=== PATIENT | female | born 1935 | race Caucasian/White ===

== ENCOUNTER → 2018-05-10 | Outpatient (CLI) | payer MEDICARE, OTHER ==
[2018-05-10] VITALS (7 sets, daily range): BP systolic 145–166; BP diastolic 48–88
[~2018-05-10] VITALS: Ht 165.1 cm; Wt 65.8 kg
[~2018-05-10] MED LIST: ALLOPURINOL 10100 M1 PO; CLONAZEPAM 0.50.5 M1 PO; FENOFIBRATE134 MG PO; IMDUR 30 MG TAB30 M1 PO; KLOR-CON 1010 MEQ PO; LASIX 40 MG TAB40 M2 PO; LISINOPRIL20 MG PO; LOPRESSOR50 PO; PAXIL10 MG PO; ZOCOR20 MG PO
[2018-05-10 10:07] LABS: HEMATOCRIT 36.3 % (37.0-47.0); HEMOGLOBIN 12.4 gm/dL (12.0-15.0); MCH 30.3 pg (26.0-34.0); MCHC 34.2 g/dL (28.0-37.0); MCV 88.7 fL (80.0-100.0); MPV 8.3 fl. (7.2-11.1); RBC 4.09 mil/uL (4.20-5.00); RDW-CV 14.2 % (10.5-14.5); WBC 8.3 thou/uL (4.0-11.0)
[2018-05-10 10:15] LABS: ANION GAP 10 mmol/L (7-16); BUN 32 mg/dL (7-18); CHLORIDE 103 mmol/L (98-107); CO2 26 mmol/L (21-32); CREATININE 1.3 mg/dL (0.6-1.3); GLUCOSE 184 mg/dL (70-99); POTASSIUM 3.6 mmol/L (3.5-5.1); SODIUM 139 mmol/L (136-145)
[2018-05-10 10:16] LABS: APTT 29.6 Seconds (25.0-31.3); PROTIME 10.6 Seconds (9.20-11.50)
[2018-05-10 10:19] LABS: ALBUMIN 3.9 g/dL (3.4-5.0); ALKALINE PHOSPHATASE 47 U/L (46-116); CHOLESTEROL 198 mg/dL (<200); HDL CHOLESTEROL 39 mg/dL (>40); LDL CHOLESTEROL 119 mg/dL (<100); SGOT 21 U/L (15-37); SGPT 26 U/L (30-65); TC:HDL 5.1 Ratio (Not establshd); TOTAL BILIRUBIN 0.3 mg/dL (<0.1-1.0); TOTAL PROTEIN 7.7 g/dL (6.4-8.2); TRIGLYCERIDE 200 mg/dL (<150); VLDL 40 mg/dL (<40)
[2018-05-10 10:20] LABS: SERUM ASSESSMENT Clear
--- NOTE | 2018-05-10 14:31 | CARD ---
[address] [address] CARDIAC CATH REPORT Name: HOMERO BALL Room: [facility]#: [id number] Admission: 05/10/18 Attend Phys: John Bermudez MD Discharge: Date of : 37 Report #: [id number] THIS REPORT FOR: //name// APPROVED REPORT Study performed: 05/10/2018 11:00:37 Patient Details The patient is a 83 year-old female Event Personnel John Bermudez Interior Surface Insulation Worker, Veronica Ospina RN RN, Herrera Castro, Mone Garland RTR Scrub Procedure Narrative A Slender Glidesheath sheath was inserted into the . Coronary angiography was performed using coronary diagnostic catheters. The right coronary system was accessed and visualized with a Ellis 4.0 6fr catheter. The left coronary system was accessed and visualized with a Ellis 4.0 6fr catheter. The left ventricle was accessed and visualized with a PC: Pig 6fr catheter. The patient tolerated the procedure well and there were no complications associated with the procedure. Intraoperative Conscious Sedation Sedation start time: 1155 Case end Time: 1218 Fentanyl 25 mcg Versed 1 mg Fluoro Time: 7.9 minutes Dose: DAP 92972 cGycm2 683 mGy Contrast Type and Amount: Visipaque 100 ml Coronary Angiography The patient's coronary anatomy is right dominant. Diagnostic Cath Left Main normal LAD mid 50% apical LAD small vessel diffuse disease 60% Diagonal 1 40% Circumflex normal OM1 normal OM2 30% Right Coronary normal R PDA normal [facility] [address] [place] [address] CARDIAC CATH REPORT Name: HOMERO BALL SOLANGE Room: [facility]#: [id number] Admission: 05/10/18 Attend Phys: John Bermudez MD Discharge: Date of : 37 Report #: [id number] Left Ventriculography The left ventricle is normal in size with normal contractility. The left ventricular ejection fraction is estimated to be >55%. Left ventricular wall motion abnormalities are not present. There is no mitral insufficiency. Hemodynamics The aortic pressure is 139/52 mmHg with a mean of 97 mmHg. The left ventricular pressure is 161/0 mmHg with a mean of mmHg. The left ventricular end diastolic pressure is 15 mmHg. Conclusion 1. Moderate CAD 2. Normal LV systolic function Recommendations Aggressive Medical Therapy Medications Administered Aspirin (any) <ELECTRONICALLY SIGNED> By: John Bermudez MD, FAC 05/10/18 1431 30 143John Bermudez MD, FACC /INF
--- NOTE | 2018-05-11 15:50 | EKG ---
[place] [address] ELECTROCARDIOGRAM REPORT Name: HOMERO BALL Room: [facility]#: [id number] Admission: 05/10/18 Attend Phys: John Bermudez MD Discharge: Date of : 37 Report #: [id number] THIS REPORT FOR: //name// [facility] Test Date: 2018-05-10 Test Time: 11:02:48 Pat Name: HOMERO BALL Department: Room: Gender: F Screed Person: : 1935 Requested By: John Bermudez Order Number: [id number] Reading MD: Fabian Waldron Measurements Intervals [place] Rate: 62 P: 46 IN: 211 QRS: 19 QRSD: 88 T: 36 QT: 445 QTc: 452 Interpretive Statements Sinus rhythm No previous ECG available for comparison Electronically Signed On 05-11-2018 15:50:35 [employer]GE[employer] by Fabian Waldron [email or web address] <ELECTRONICALLY SIGNED> By: Fabian Waldron MD, [facility] 05/11/18 1550 1102 1102 Fabian Waldron MD, FACC /EPI
== END | disposition home or self-care (01) ==
LOC: M.CL 08:53
PROVIDERS: Internal Medicine Cardiovascular Disease
DX: I25.10 Atherosclerotic heart disease of native coronary artery without angina pectoris (principal); I11.0 Hypertensive heart disease with heart failure; I50.9 Heart failure, unspecified; Z90.49 Acquired absence of other specified parts of digestive tract; Z98.890 Other specified postprocedural states; Z88.2 Allergy status to sulfonamides; Z79.899 Other long term (current) drug therapy